=== PATIENT | female | born 1995 | race Caucasian/White ===

== ENCOUNTER 2022-09-28 19:52 | Inpatient (IN) | payer SELFPAY ==
[~2022-09-28] VITALS: Ht 154.9 cm; Wt 73.2 kg
[2022-09-28] MEDS ORDERED: ONDANSETRON HCL 4MG/2ML INJ IV STA (20:08)
[2022-09-28] MEDS ORDERED: ACTIVATED CHARCOAL 50 G/240 ML TUBE PO ONE (20:15)
[2022-09-28] MEDS ORDERED: SODIUM CHLORIDE 0.9% 1,000 ML IV ONE ×2 (20:15→23:15)
[2022-09-28 20:54] LABS: BASOPHILS % 0.5 % (0.0-2.0); EOSINOPHILS % 0.4 % (0.0-5.0); HEMATOCRIT. 38.1 % (36.0-48.0); LYMPHOCYTES % 20.6 % (20.0-50.0); MEAN CORPUSCULAR HEMOGLOBIN 30.1 pg (28.0-32.0); MEAN CORPUSCULAR VOLUME 88.6 fL (81.0-99.0); MEAN PLATELET VOLUME 8.4 fl (7.4-10.4); MONOCYTES % 8.4 % (2.0-8.0); NEUTROPHILS % 70.1 % (40.0-76.0); PLATELET 388 x1000/uL (130-400); RED CELL DISTRIBUTION WIDTH 13.6 % (11.6-14.6)
[2022-09-28 21:00] LABS: CHLORIDE 107 mEq/L (98-107)
[2022-09-28 21:12] LABS: ETHANOL BLOOD < 10 mg/dL
[2022-09-28 21:16] LABS: HCG SCREEN NEGATIVE
[2022-09-28] MEDS ORDERED: KETOROLAC 30MG/ML VIAL IV ONE (22:00)
[2022-09-28] MEDS ORDERED: FAMOTIDINE 20MG/2ML VIAL IV ONE (22:00)
[2022-09-28 22:54] LABS: PARTIAL THROMBOPLASTIN TIME 22.2 sec (23.4-31.0); PROTHROMBIN TIME 11.2 sec (9.6-11.0)
[2022-09-28] MEDS ORDERED: DOCUSATE SODIUM 100MG CAPSULE PO PRN (23:15)
[2022-09-28] MEDS ORDERED: GUAIFENESIN 200MG/10ML SUGAR FREE UDC PO PRN (23:15)
[2022-09-28] MEDS ORDERED: ENOXAPARIN 40MG/0.4ML SYR SUBCUT SCH (23:15)
[2022-09-28] MEDS ORDERED: ACETAMINOPHEN 325MG TABLET PO PRN ×2 (23:15)
[2022-09-28] MEDS ORDERED: CLONIDINE 0.1MG TABLET PO PRN (23:15)
[2022-09-28] MEDS ORDERED: ONDANSETRON HCL 4MG/2ML INJ IV PRN (23:15)
[2022-09-28] MEDS ORDERED: POTASSIUM CHLORIDE 20MEQ TABLET SR PO NR (23:30)
[2022-09-29] MEDS ORDERED: KCL 20MEQ/100ML PREMIX 100 ML IV NR
[2022-09-29 00:38] LABS: PHOSPHORUS 3.5 mg/dL (2.5-4.9)
[2022-09-29 01:09] LABS: FOLIC ACID (FOLATE) SERUM >20 ng/mL ng/mL (>5.38); VITAMIN B12 SERUM 775 pg/mL (211-911)
[2022-09-29] MEDS ORDERED: LORAZEPAM 2MG/ML CPJ ONE (01:16)
[2022-09-29] MEDS ORDERED: LORAZEPAM 2MG/ML CPJ IV NR (01:30)
[2022-09-29 05:22] LABS: BASOPHILS % 0.5 % (0.0-2.0); HEMATOCRIT. 38.5 % (36.0-48.0); HEMOGLOBIN. 12.9 g/dL (12.0-16.0); MEAN CORPUSCULAR HEMOGLOBIN 29.5 pg (28.0-32.0); MEAN CORPUSCULAR VOLUME 88.2 fL (81.0-99.0); MONOCYTES % 9.9 % (2.0-8.0); NEUTROPHILS % 62.6 % (40.0-76.0); PLATELET 347 x1000/uL (130-400); RED BLOOD CELL COUNT 4.37 mill/uL (4.2-5.4); RED CELL DISTRIBUTION WIDTH 13.4 % (11.6-14.6)
[2022-09-29 05:31] LABS: CHLORIDE 107 mEq/L (98-107)
[2022-09-29 05:49] LABS: HDL CHOLESTEROL 38 mg/dL (40-59); LDL CHOLESTEROL 90 mg/dL (5-100); T4 FREE 1.36 ng/dL (0.76-1.46)
[2022-09-29] MEDS ORDERED: FAMOTIDINE 20MG/2ML VIAL IV SCH (09:00)
[2022-09-29 15:15] VITALS: BP 153/84
[2022-09-29 16:00] VITALS: BP 146/80
[2022-09-29] MEDS ORDERED: KETOROLAC 10MG TABLET PO PRN (16:15)
[2022-09-29 19:14] VITALS: BP 146/80
[2022-09-29 19:42] LABS: CLARITY URINE CLEAR (CLEAR); COLOR URINE YELLOW (YELLOW); KETONES URINE 3+ (NEGATIVE); LEUKOCYTE ESTERASE URINE NEGATIVE (NEGATIVE); NITRITE URINE NEGATIVE (NEGATIVE); OCCULT BLOOD URINE 3+ (NEGATIVE); PH URINE 6.5 (4.5-8.0); PROTEIN URINE NEGATIVE (NEGATIVE); SPECIFIC GRAVITY URINE 1.013 (1.005-1.030)
[2022-09-29 20:00] VITALS: BP 114/68
[2022-09-29 20:09] LABS: *AMPHETAMINES SCREEN URINE NEGATIVE (NEGATIVE); *BARBITURATES SCREEN URINE NEGATIVE (NEGATIVE); *COCAINE SCREEN URINE NEGATIVE (NEGATIVE); METHADONE URINE SCREEN NEGATIVE (NEGATIVE); OPIATES URINE SCREEN NEGATIVE (NEGATIVE); PHENCYCLIDINE URINE SCREEN NEGATIVE (NEGATIVE)
[2022-09-29 20:11] LABS: *BENZODIAZEPINES SCREEN URINE PRESUMTIVE POSITIVE (NEGATIVE); CANNABINOID URINE SCREEN PRESUMTIVE POSITIVE (NEGATIVE)
[2022-09-29] MEDS: ENOXAPARIN 40MG/0.4ML SYR SUBCUT SCH ×3 (21:04→22:29)
[2022-09-29] MEDS: LORAZEPAM 1MG TABLET PO PRN (23:33)
[2022-09-30] VITALS: BP 102/50
[2022-09-30 04:00] VITALS: BP 109/62
[2022-09-30] MEDS ORDERED: ONDANSETRON HCL 4MG TABLET PO PRN (06:00)
[2022-09-30] MEDS: ONDANSETRON 4MG ODT PO PRN ×2 (06:16→12:15)
[2022-09-30 07:01] LABS: HEMATOCRIT 36.9 % (36.0-48.0); HEMOGLOBIN 12.7 g/dL (12.0-16.0); MEAN CORPUSCULAR HEMOGLOBIN 30.1 pg (28.0-32.0); MEAN CORPUSCULAR VOLUME 87.4 fL (81.0-99.0); PLATELET 351 x1000/uL (130-400); RED BLOOD CELL COUNT 4.22 mill/uL (4.2-5.4); RED CELL DISTRIBUTION WIDTH 13.3 % (11.6-14.6)
[2022-09-30] MEDS ORDERED: VENL-180 MT (07:19)
[2022-09-30] MEDS ORDERED: DEXL30CA3 PO (07:19)
[2022-09-30 07:53] LABS: CHLORIDE 107 mEq/L (98-107)
[2022-09-30 08:00] VITALS: BP 128/68
[2022-09-30] MEDS: LORAZEPAM 1MG TABLET PO PRN (08:45)
[2022-09-30] MEDS ORDERED: FAMOTIDINE 20MG TABLET PO SCH (09:00)
[2022-09-30 12:00] VITALS: BP 123/87
[2022-09-30] MEDS ORDERED: ONDA4TAB11 PO (13:18)
[2022-09-30] MEDS ORDERED: FAMO20TA8 PO (13:18)
[2022-09-30 13:40] VITALS: BP 123/87
== END 2022-09-30 16:03 | disposition home or self-care (01) | DRG 817 ==
LOC: ER 19:52 → MICUSO 22:37 → 7WST 09-29 15:55
PROVIDERS: ADMIT Internal Medicine; ATTEND Internal Medicine
DX: T43.212A Poisoning by selective serotonin and norepinephrine reuptake inhibitors, intentional self-harm, initial encounter (principal); F33.2 Major depressive disorder, recurrent severe without psychotic features; E87.6 Hypokalemia; R73.9 Hyperglycemia, unspecified; F41.1 Generalized anxiety disorder; F41.0 Panic disorder [episodic paroxysmal anxiety]; Y92.89 Other specified places as the place of occurrence of the external cause
CPT/HCPCS: 36415; 80053; 80061; 80305; 80307; 80320; 80329; 81003; 82140; 82607; 82746; 83036; 83735; 84100; 84439; 84443; 84703; 85025; 85027; 93005; 99285; J1650; J1885; J2060; J2405; J3480; J3490; J7030; Q0162; G0480

== ENCOUNTER 2022-10-04 09:08 | Emergency (ER) | payer OTHER ==
[~2022-10-04] VITALS: Ht 157.5 cm; Wt 70.0 kg
[~2022-10-04 09:08] MED LIST: DEXL30CA3 PO; FAMO20TA8 PO; ONDA4TAB11 PO; VENL-180 MT
[2022-10-04] MEDS ORDERED: FAMOTIDINE 20MG TABLET PO ONE (09:30)
[2022-10-04] MEDS ORDERED: ONDANSETRON 4MG ODT PO ONE (09:30)
[2022-10-04] MEDS ORDERED: KETOROLAC 15MG/ML VIAL IM ONE (10:00)
[2022-10-04] MEDS ORDERED: METOCLOPRAMIDE HCL 10MG/2ML VIAL IV ONE (10:00)
[2022-10-04] MEDS ORDERED: FAMOTIDINE 20MG/2ML VIAL IV SCH (10:00)
[2022-10-04] MEDS ORDERED: SODIUM CHLORIDE 0.9% 1,000 ML IV ONE (10:00)
[2022-10-04] MEDS ORDERED: HYDROXYZINE 25MG TABLET PO ONE (11:15)
[2022-10-04] MEDS ORDERED: KETOROLAC 15MG/ML VIAL IV ONE (11:15)
[2022-10-04 11:29] LABS: BASOPHILS % 0.3 % (0.0-2.0); HEMATOCRIT. 35.7 % (36.0-48.0); HEMOGLOBIN. 12.1 g/dL (12.0-16.0); LYMPHOCYTES % 14.4 % (20.0-50.0); MEAN CORPUSCULAR HEMOGLOBIN 29.5 pg (28.0-32.0); MEAN CORPUSCULAR VOLUME 87.2 fL (81.0-99.0); MEAN PLATELET VOLUME 8.3 fl (7.4-10.4); MONOCYTES % 3.4 % (2.0-8.0); NEUTROPHILS % 81.9 % (40.0-76.0); PLATELET 332 x1000/uL (130-400); RED BLOOD CELL COUNT 4.09 mill/uL (4.2-5.4); RED CELL DISTRIBUTION WIDTH 13.6 % (11.6-14.6)
[2022-10-04] MEDS ORDERED: LORAZEPAM 2MG/ML CPJ IV ONE ×2 (12:00→15:00)
[2022-10-04 12:02] LABS: CHLORIDE 109 mEq/L (98-107)
[2022-10-04 13:41] LABS: HCG SCREEN NEGATIVE
[2022-10-04] MEDS ORDERED: IOHEXOL-300 100 ML BOTTLE ONE (13:52)
[2022-10-04] MEDS ORDERED: ONDANSETRON HCL 4MG/2ML INJ IV ONE (15:00)
[2022-10-04] MEDS ORDERED: ONDA4TAB11 PO (15:55)
[2022-10-04] MEDS ORDERED: FAMO20TA8 PO (15:55)
[2022-10-04 16:45] VITALS: BP 155/86
[2022-10-04] MEDS ORDERED: ONDANSETRON HCL 4MG/2ML INJ IV NR (16:45)
[2022-10-04] MEDS ORDERED: LORAZEPAM 2MG/ML CPJ IV NR (16:45)
== END 2022-10-04 17:55 | disposition home or self-care (01) ==
LOC: ER 09:18
DX: F41.0 Panic disorder [episodic paroxysmal anxiety] (principal); R45.1 Restlessness and agitation; R11.2 Nausea with vomiting, unspecified; F32.9 Major depressive disorder, single episode, unspecified
CPT/HCPCS: 36415; 74177; 80053; 83605; 83690; 84703; 85025; 96361; 96372; 96374; 96375; 96376; 99285; J1885; J2060; J2405; J2765; J3490; J7030; Q9967